=== PATIENT | male | born 1950 | race Asian ===

== ENCOUNTER → 2018-08-08 | Outpatient (CLI) | payer MEDICAID | END | disposition home or self-care (01) | LOC: RADMN 08:03 | PROVIDERS: ATTEND Internal Medicine Cardiovascular Disease | DX: I25.9 Chronic ischemic heart disease, unspecified (principal); I42.5 Other restrictive cardiomyopathy; I50.20 Unspecified systolic (congestive) heart failure | CPT/HCPCS: 78472; Q3010 ==

== ENCOUNTER 2018-08-31 09:08 | Inpatient (IN) | payer MEDICAID ==
[~2018-08-31] VITALS: Ht 162.6 cm; Wt 67.9 kg
[2018-08-31] MEDS ORDERED: TICA90TA PO (09:17)
[2018-08-31] MEDS ORDERED: CARV12 PO (09:17)
[2018-08-31] MEDS ORDERED: METF-960 PO ×2 (09:17→17:57)
[2018-08-31] MEDS ORDERED: LOSA25TA16 PO (09:17)
[2018-08-31 09:51] LABS: BASOPHILS % (AUTO) 1.3 % (0.0-2.0); EOSINOPHILS % (AUTO) 3.8 % (1.0-6.0); HEMATOCRIT 39.5 % (41-53); HEMOGLOBIN 12.5 g/dL (13.5-17.5); LYMPHOCYTES # (AUTO) 0.9 K/uL (1.0-4.8); LYMPHOCYTES % (AUTO) 15.4 % (22.0-44.0); MEAN CORPUSCULAR HEMOGLOBIN 26.1 pg (26.0-34.0); MEAN CORPUSCULAR HGB CONC 31.7 G/dL (31.0-37.0); MEAN CORPUSCULAR VOLUME 82 fL (80-100); MONOCYTES # (AUTO) 0.4 K/uL (0.1-1.0); MONOCYTES % (AUTO) 6.6 % (2.0-9.0); NEUTROPHILS # (AUTO) 4.4 K/uL (1.8-7.7); NEUTROPHILS % (AUTO) 72.9 % (40.0-70.0); PLATELET COUNT (AUTO) 175 K/uL (150-450); RED CELL DISTRIBUTION WIDTH 13.8 % (11.5-14.5)
[2018-08-31 10:02] LABS: CALCIUM, TOTAL 8.4 mg/dL (8.8-10.5); CREATININE 1.39 mg/dL (0.60-1.30); POTASSIUM 4.2 mmol/L (3.5-5.1)
[2018-08-31 10:08] LABS: ALBUMIN 3.6 g/dL (3.4-5.0); BILIRUBIN,TOTAL 0.4 mg/dL (0.1-1.0); TOTAL PROTEIN, SERUM 6.8 g/dL (6.4-8.2)
[2018-08-31] MEDS ORDERED: ASPIRIN 81 MG CHEWABLE TABLET PO ONE (11:15)
[2018-08-31] MEDS ORDERED: CLOPIDOGREL BISULFATE 75 MG TABLET PO ONE (11:15)
[2018-08-31 11:27] LABS: AMPHET/METH SCREEN,URINE NEGATIVE (NEGATIVE); BARBITURATE SCREEN, URINE NEGATIVE (NEGATIVE); BENZODIAZEPINES SCREEN,URINE NEGATIVE (NEGATIVE); CANNABINOID SCREEN,URINE NEGATIVE (NEGATIVE); COCAINE SCREEN,URINE NEGATIVE (NEGATIVE); METHADONE SCREEN, URINE NEGATIVE (NEGATIVE); OPIATE SCREEN,URINE NEGATIVE (NEGATIVE); PHENCYCLIDINE SCREEN,URINE NEGATIVE (NEGATIVE)
[2018-08-31 11:37] LABS: APPEARANCE,URINE CLEAR (CLEAR); BILIRUBIN,URINE NEGATIVE (NEGATIVE); GLUCOSE, URINE (UA) NEGATIVE (NEGATIVE); KETONES,URINE NEGATIVE (NEGATIVE); LEUKOCYTE ESTERASE ,URINE NEGATIVE (NEGATIVE); NITRATE,URINE NEGATIVE (NEGATIVE); OCCULT BLOOD,URINE TRACE (NEGATIVE); PH,URINE 6.5 (5.0-8.0); PROTEIN,URINE NEGATIVE (NEGATIVE); UROBILINOGEN,URINE 0.2 mg/dL (<=1.0)
[2018-08-31] MEDS ORDERED: INSULIN LISPRO 100 UNITS/ML SQ PRN (11:45)
[2018-08-31] MEDS: CARVEDILOL 12.5 MG TABLET PO SCH (11:45)
[2018-08-31] MEDS ORDERED: GLUCAGON,HUMAN RECOMBINANT 1 MG VIAL IM PRN (11:45)
[2018-08-31] MEDS ORDERED: ACETAMINOPHEN 325 MG TABLET PO PRN (11:45)
[2018-08-31] MEDS ORDERED: MAGNESIUM SULFATE 2 GM/WATER 50 ML IV PRN (11:45)
[2018-08-31] MEDS ORDERED: MAGNESIUM SULFATE 4 GM/WATER 100 ML IV PRN (11:45)
[2018-08-31] MEDS ORDERED: POTASSIUM CHLORIDE 20 MEQ ER TABLET PO PRN (11:45)
[2018-08-31] MEDS: LOSARTAN POTASSIUM 25 MG TABLET PO SCH (11:45)
[2018-08-31] MEDS ORDERED: POTASSIUM CHL 10 MEQ/WATER 50 ML IV PRN (11:45)
[2018-08-31] MEDS ORDERED: ONDANSETRON HCL 4 MG/2 ML VIAL IVP PRN (11:45)
[2018-08-31] MEDS ORDERED: ZOLPIDEM TARTRATE 5 MG TABLET PO PRN (11:45)
[2018-08-31] MEDS ORDERED: MAGNESIUM OXIDE 400 MG TABLET PO PRN (11:45)
[2018-08-31 11:59] LABS: BACTERIA,URINE None Seen /HPF (None Seen); RBC,URINE None Seen /HPF (0-2); SQUAMOUS EPITHELIAL CELL,UR None Seen /LPF (None Seen); WBC,URINE None Seen /HPF (0-5)
[2018-08-31] MEDS: DOCUSATE SODIUM 100 MG CAPSULE PO SCH ×2 (12:26→20:15)
[2018-08-31] MEDS: PANTOPRAZOLE SODIUM 40 MG/VIAL IVP SCH (12:27)
[2018-08-31 14:57] VITALS: BP 121/63
[2018-08-31] MEDS ORDERED: SACU1TAB PO (17:57)
[2018-08-31] MEDS ORDERED: ATOR40TA28 PO (17:57)
[2018-08-31] MEDS ORDERED: DIGO-44 PO (17:57)
[2018-08-31] MEDS ORDERED: ASPI-1182 PO (17:57)
[2018-08-31] MEDS ORDERED: MAGN250T9 PO (17:57)
[2018-08-31] MEDS ORDERED: CLOP75 PO (17:57)
[2018-08-31] MEDS ORDERED: ISOS30TA6 PO (17:58)
[2018-08-31] MEDS ORDERED: CARV6 PO (17:58)
[2018-08-31] MEDS: MetFORMIN HCL 500 MG TABLET PO SCH (18:14)
[2018-08-31 19:20] VITALS: BP 111/56
[2018-08-31 19:32] VITALS: BP 111/56
[2018-08-31 20:15] LABS: GLUCOSE,POINT OF CARE 96 MG/DL (70-110)
[2018-08-31] MEDS: TICAGRELOR 90 MG TABLET PO SCH (20:15)
[2018-08-31] MEDS ORDERED: DEXTROSE 50%-WATER 25 GM/50 ML SYG IVP PRN (21:15)
[2018-08-31 23:29] VITALS: BP 116/62
[2018-09-01 04:19] VITALS: BP 114/71
[2018-09-01 06:25] LABS: EOSINOPHILS % (AUTO) 4.2 % (1.0-6.0); HEMATOCRIT 41.3 % (41-53); HEMOGLOBIN 13.2 g/dL (13.5-17.5); LYMPHOCYTES # (AUTO) 1.2 K/uL (1.0-4.8); LYMPHOCYTES % (AUTO) 18.5 % (22.0-44.0); MEAN CORPUSCULAR HEMOGLOBIN 26.2 pg (26.0-34.0); MEAN CORPUSCULAR HGB CONC 31.9 G/dL (31.0-37.0); MEAN CORPUSCULAR VOLUME 82 fL (80-100); MONOCYTES # (AUTO) 0.5 K/uL (0.1-1.0); MONOCYTES % (AUTO) 7.8 % (2.0-9.0); NEUTROPHILS # (AUTO) 4.3 K/uL (1.8-7.7); NEUTROPHILS % (AUTO) 68.5 % (40.0-70.0); PLATELET COUNT (AUTO) 181 K/uL (150-450); RED BLOOD CELL COUNT(AUTO) 5.03 MIL/uL (4.50-5.90); RED CELL DISTRIBUTION WIDTH 13.7 % (11.5-14.5)
[2018-09-01 06:32] LABS: HEMOGLOBIN A1C 6.2 % (4.5-6.2)
[2018-09-01 06:41] LABS: CALCIUM, TOTAL 9.3 mg/dL (8.8-10.5); CHOL/HDL RATIO 3.3 (4.2-7.3); CREATININE 1.27 mg/dL (0.60-1.30); MAGNESIUM 2.6 mg/dL (1.80-2.40); POTASSIUM 4.2 mmol/L (3.5-5.1)
[2018-09-01 07:48] VITALS: BP 113/79
[2018-09-01] MEDS: TICAGRELOR 90 MG TABLET PO SCH ×2 (08:21→22:00)
[2018-09-01] MEDS: MetFORMIN HCL 500 MG TABLET PO SCH ×2 (08:21→18:05)
[2018-09-01] MEDS: PANTOPRAZOLE SODIUM 40 MG/VIAL IVP SCH (08:21)
[2018-09-01] MEDS: DOCUSATE SODIUM 100 MG CAPSULE PO SCH ×2 (08:22→22:00)
[2018-09-01] MEDS: CARVEDILOL 12.5 MG TABLET PO SCH (08:22)
[2018-09-01] MEDS: INSULIN LISPRO 100 UNITS/ML SQ PRN ×2 (11:18→18:06)
[2018-09-01 11:53] VITALS: BP 130/73
[2018-09-01] MEDS: ATORVASTATIN CALCIUM 40 MG TABLET PO SCH (12:18)
[2018-09-01] MEDS: LOSARTAN POTASSIUM 25 MG TABLET PO SCH (12:19)
[2018-09-01 16:25] VITALS: BP 119/68
[2018-09-01 20:35] LABS: GLUCOMETER DEV NAME(LOC) 5S 2Q; GLUCOSE,POINT OF CARE 86 MG/DL (70-110)
[2018-09-01 21:09] VITALS: BP 117/73
[2018-09-02] VITALS (7 sets, daily range): BP systolic 101–125; BP diastolic 48–66
[2018-09-02] MEDS: ATORVASTATIN CALCIUM 40 MG TABLET PO SCH (08:20)
[2018-09-02] MEDS: MetFORMIN HCL 500 MG TABLET PO SCH ×2 (08:20→18:10)
[2018-09-02] MEDS: DOCUSATE SODIUM 100 MG CAPSULE PO SCH ×2 (08:20→19:59)
[2018-09-02] MEDS: PANTOPRAZOLE SODIUM 40 MG/VIAL IVP SCH (08:20)
[2018-09-02] MEDS: CARVEDILOL 12.5 MG TABLET PO SCH (08:20)
[2018-09-02] MEDS: LOSARTAN POTASSIUM 25 MG TABLET PO SCH (08:20)
[2018-09-02] MEDS: TICAGRELOR 90 MG TABLET PO SCH ×2 (08:20→19:59)
[2018-09-02 12:57] LABS: GLUCOMETER DEV NAME(LOC) 5N 1P; GLUCOSE,POINT OF CARE 111 MG/DL (70-110)
[2018-09-03 01:54] LABS: GLUCOMETER DEV NAME(LOC) 5S 1M; GLUCOSE,POINT OF CARE 99 MG/DL (70-110)
[2018-09-03 01:54] LABS: GLUCOMETER DEV NAME(LOC) 5S 1M; GLUCOSE,POINT OF CARE 91 MG/DL (70-110)
[2018-09-03 01:54] LABS: GLUCOMETER DEV NAME(LOC) 5S 1M; GLUCOSE,POINT OF CARE 92 MG/DL (70-110)
[2018-09-03 01:54] LABS: GLUCOMETER DEV NAME(LOC) 5N 2S; GLUCOSE,POINT OF CARE 102 MG/DL (70-110)
[2018-09-03 01:54] LABS: GLUCOMETER DEV NAME(LOC) 5S 1M; GLUCOSE,POINT OF CARE 89 MG/DL (70-110)
[2018-09-03 01:54] LABS: GLUCOMETER DEV NAME(LOC) 5N 2S; GLUCOSE,POINT OF CARE 126 MG/DL (70-110)
[2018-09-03 01:55] LABS: GLUCOMETER DEV NAME(LOC) 5N 2S; GLUCOSE,POINT OF CARE 96 MG/DL (70-110)
[2018-09-03 01:55] LABS: GLUCOMETER DEV NAME(LOC) 5N 1P; GLUCOSE,POINT OF CARE 100 MG/DL (70-110)
[2018-09-03 04:22] VITALS: BP 110/68
[2018-09-03 07:30] VITALS: BP 106/64
[2018-09-03] MEDS: ATORVASTATIN CALCIUM 40 MG TABLET PO SCH (08:05)
[2018-09-03] MEDS: DOCUSATE SODIUM 100 MG CAPSULE PO SCH (08:05)
[2018-09-03] MEDS: LOSARTAN POTASSIUM 25 MG TABLET PO SCH (08:05)
[2018-09-03] MEDS: MetFORMIN HCL 500 MG TABLET PO SCH (08:05)
[2018-09-03] MEDS: CARVEDILOL 12.5 MG TABLET PO SCH (08:05)
[2018-09-03] MEDS: PANTOPRAZOLE SODIUM 40 MG/VIAL IVP SCH (08:05)
[2018-09-03] MEDS: TICAGRELOR 90 MG TABLET PO SCH (08:05)
[2018-09-03] MEDS ORDERED: CARVEDILOL 12.5 MG TABLET PO SCH (09:00)
[2018-09-03] MEDS ORDERED: LOSARTAN POTASSIUM 50 MG TABLET PO SCH (09:00)
[2018-09-03 09:31] LABS: EOSINOPHILS % (AUTO) 2.8 % (1.0-6.0); HEMATOCRIT 43.8 % (41-53); HEMOGLOBIN 14.2 g/dL (13.5-17.5); LYMPHOCYTES # (AUTO) 0.9 K/uL (1.0-4.8); LYMPHOCYTES % (AUTO) 15.1 % (22.0-44.0); MEAN CORPUSCULAR HEMOGLOBIN 26.5 pg (26.0-34.0); MEAN CORPUSCULAR HGB CONC 32.5 G/dL (31.0-37.0); MEAN CORPUSCULAR VOLUME 82 fL (80-100); MONOCYTES # (AUTO) 0.3 K/uL (0.1-1.0); MONOCYTES % (AUTO) 4.5 % (2.0-9.0); NEUTROPHILS # (AUTO) 4.5 K/uL (1.8-7.7); NEUTROPHILS % (AUTO) 76.6 % (40.0-70.0); PLATELET COUNT (AUTO) 184 K/uL (150-450); RED BLOOD CELL COUNT(AUTO) 5.36 MIL/uL (4.50-5.90); RED CELL DISTRIBUTION WIDTH 13.8 % (11.5-14.5)
[2018-09-03 09:38] LABS: CALCIUM, TOTAL 9.3 mg/dL (8.8-10.5); CREATININE 1.51 mg/dL (0.60-1.30); POTASSIUM 4.3 mmol/L (3.5-5.1)
[2018-09-03] MEDS ORDERED: SITA50 PO (10:18)
[2018-09-03 11:01] VITALS: BP 101/56
[2018-09-03 16:02] VITALS: BP 104/62
[2018-09-03 20:20] LABS: GLUCOMETER DEV NAME(LOC) 5S 1M; GLUCOSE,POINT OF CARE 97 MG/DL (70-110)
[2018-09-05 06:00] LABS: GLUCOMETER DEV NAME(LOC) 5N 2S; GLUCOSE,POINT OF CARE 82 MG/DL (70-110)
== END 2018-09-03 18:25 | disposition home or self-care (01) | DRG 47 ==
LOC: EMS 09:08 → 5S 13:29
PROVIDERS: ADMIT Internal Medicine; ATTEND Internal Medicine
DX: G45.9 Transient cerebral ischemic attack, unspecified (principal); E11.9 Type 2 diabetes mellitus without complications; I25.10 Atherosclerotic heart disease of native coronary artery without angina pectoris; E78.00 Pure hypercholesterolemia, unspecified; R00.1 Bradycardia, unspecified; I10 Essential (primary) hypertension; E78.5 Hyperlipidemia, unspecified; Z95.5 Presence of coronary angioplasty implant and graft
CPT/HCPCS: 70450; 70544; 70551; 78472; 83036; 83735; 90686; 93005; 93306; 93880; 99285; C9113; J1815

== ENCOUNTER 2019-04-25 11:38 | Emergency (ER) | payer MEDICAID ==
[~2019-04-25] VITALS: Ht 162.6 cm; Wt 69.5 kg
[~2019-04-25 11:38] MED LIST: ASPI-1182 PO; ATOR40TA28 PO; CARV6 PO; CLOP75TA3 PO; DIGO-44 PO; LOSA25TA41 PO; MAGN250T9 PO; METF-960 PO; SITA50 PO; TICA90TA PO
[2019-04-25] MEDS ORDERED: LOSA50TA64 PO (11:57)
[2019-04-25] MEDS ORDERED: METF-960 PO (11:57)
[2019-04-25] MEDS ORDERED: NITR.6 SL (11:57)
[2019-04-25 11:59] LABS: GLUCOSE,POINT OF CARE 93 MG/DL (70-110)
[2019-04-25] MEDS ORDERED: FLUORESCEIN SODIUM 1 MG STRIP OS ONE (12:15)
[2019-04-25] MEDS ORDERED: PROPARACAINE HCL 0.5% 15 ML OPHTHALMIC SOLUTION OS ONE (12:15)
[2019-04-25] MEDS ORDERED: TETRACAINE HCL/PF 0.5% 4 ML OPHTHALMIC SOLUTION OS ONE (12:15)
[2019-04-25 13:32] VITALS: BP 107/68
== END 2019-04-25 13:32 | disposition home or self-care (01) ==
LOC: EMS 11:39
DX: H11.32 Conjunctival hemorrhage, left eye (principal); E78.00 Pure hypercholesterolemia, unspecified; E11.9 Type 2 diabetes mellitus without complications; I25.10 Atherosclerotic heart disease of native coronary artery without angina pectoris; I11.9 Hypertensive heart disease without heart failure; Z98.62 Peripheral vascular angioplasty status; Z79.899 Other long term (current) drug therapy; Z79.82 Long term (current) use of aspirin

== ENCOUNTER 2019-05-14 15:16 | Emergency (ER) | payer MEDICAID ==
[~2019-05-14] VITALS: Ht 162.6 cm; Wt 68.2 kg
[~2019-05-14 15:16] MED LIST changes: -DIGO-44 PO; -LOSA25TA41 PO; +LOSA50TA64 PO; +NITR.6 SL; -TICA90TA PO
[2019-05-14] MEDS ORDERED: IRON18TA PO (15:31)
[2019-05-14 15:34] LABS: GLUCOSE,POINT OF CARE 94 MG/DL (70-110)
[2019-05-14] MEDS ORDERED: FERR-89 PO (16:51)
[2019-05-14] MEDS ORDERED: POLYMYXIN B/TRIMETHOPRIM 10 ML OPHTHALMIC SOLUTION OD ONE (17:00)
[2019-05-14 17:19] VITALS: BP 119/68
== END 2019-05-14 17:19 | disposition home or self-care (01) ==
LOC: EMS 15:19
DX: H10.9 Unspecified conjunctivitis (principal); E11.9 Type 2 diabetes mellitus without complications; I25.10 Atherosclerotic heart disease of native coronary artery without angina pectoris; I11.9 Hypertensive heart disease without heart failure; Z79.899 Other long term (current) drug therapy; Z95.5 Presence of coronary angioplasty implant and graft; Z79.82 Long term (current) use of aspirin